=== PATIENT | female | born 1960 | race Caucasian/White ===

== ENCOUNTER 2020-11-23 06:05 | Observation (INO) ==
[2020-11-23] MEDS ORDERED: Ethanol\\Acetic Acid\\Na Ace\\Ben 1,000 ML IRRIG.SOLN IR ONE (06:37)
[2020-11-23] MEDS ORDERED: Vancomycin 1,000 MG VIAL ONE ×2 (06:37→18:12)
[2020-11-23] MEDS ORDERED: CeFAZolin Syr 2,000MG/20 ML 2,000 MG/20 ML SYRINGE IVPB ONE (06:47)
[2020-11-23] MEDS ORDERED: Ringers Solution, Lactated 1,000 ML IVC SCH ×2 (07:00→10:07)
[2020-11-23] MEDS ORDERED: Scopolamine Patch 1.5 MG PATCH.TD72 TD ONE (07:07)
[2020-11-23] MEDS ORDERED: *HR* HYDROmorphone PF 0.5 MG/0.5 ML SYRINGE IVP PRN (07:07)
[2020-11-23] MEDS ORDERED: *HR* OxyCODONE Immed Rel 5 MG TABLET PO PRN (07:07)
[2020-11-23] MEDS ORDERED: Gabapentin 300 MG CAPSULE PO ONE (07:07)
[2020-11-23] MEDS ORDERED: *HR* OxyCODONE ER (12 HR) 10 MG TABLET PO ONE (07:07)
[2020-11-23] MEDS ORDERED: Ondansetron 4 MG/2 ML VIAL IVP PRN ×2 (07:07→10:07)
[2020-11-23] MEDS ORDERED: Dexamethasone 4 MG/ML VIAL ONE (07:14)
[2020-11-23] MEDS ORDERED: *HR* Midazolam HCl 2 MG/2 ML VIAL ONE (07:14)
[2020-11-23] MEDS ORDERED: Lidocaine -MPF 2% 2 ML VIAL ONE (07:14)
[2020-11-23] MEDS ORDERED: *HR* Propofol 200 MG/20 ML VIAL IVP ONE (07:14)
[2020-11-23] MEDS ORDERED: *HR* FentaNYL (PF) 100 MCG/2 ML VIAL ONE (07:14)
[2020-11-23] MEDS ORDERED: *HR* Rocuronium Bromide 50 MG/5 ML VIAL ONE (07:15)
[2020-11-23] MEDS ORDERED: Lidocaine HCL 4 ML Topical Solution (Laryng-O-Jet Kit Sterile Pak) TP ONE (07:15)
[2020-11-23] MEDS ORDERED: *HR* Succinylcholine 200 MG/10 ML VIAL IVP ONE (07:15)
[2020-11-23] MEDS ORDERED: *HR* HYDROMORPHONE 2 MG/ML VIAL ONE (07:19)
[2020-11-23] MEDS ORDERED: Povidone-Iodine 45 ML, Sodium Chloride IRRigation 1,000 ML IR ONE (07:45)
[2020-11-23 09:57] LABS: Hematocrit 44.7 % (35.3-44.9); Hemoglobin 14.4 g/dL (11.5-15.4)
[2020-11-23] MEDS ORDERED: *HR* Dextrose 50 % in Water (Vial) 50 ML VIAL IVP PRN (10:07)
[2020-11-23] MEDS ORDERED: Sennosides 8.6 MG TABLET PO PRN (10:07)
[2020-11-23] MEDS ORDERED: D5% in Water 1,000 ML IVC PRN (10:07)
[2020-11-23] MEDS ORDERED: Naloxone 0.4 MG/ML INJ IVP PRN (10:07)
[2020-11-23] MEDS ORDERED: *HR* Promethazine 25 MG/ML VIAL IM PRN (10:07)
[2020-11-23] MEDS ORDERED: MOM Conc 10 ML UD.LIQ PO PRN (10:07)
[2020-11-23] MEDS ORDERED: Dextrose Gel 15 GM/37.5 ML TUBE PO PRN ×2 (10:07)
[2020-11-23] MEDS: Furosemide 40 MG TABLET PO SCH ×2 (10:51→17:00)
[2020-11-23] MEDS: Insulin LISPRO 300 UNITS/3 ML VIAL SUBQ SCH ×4 (12:31→21:25)
[2020-11-23] MEDS: Loratadine 10 MG TABLET PO SCH (12:31)
[2020-11-23] MEDS: Ascorbic Acid 500 MG TABLET PO SCH ×2 (12:31→17:00)
[2020-11-23] MEDS: Multivit/Ca/Min/Fe/FA 1 TAB TABLET PO SCH (12:31)
[2020-11-23] MEDS: allopurinoL 100 MG TABLET PO SCH (12:31)
[2020-11-23] MEDS ORDERED: Gabapentin 400 MG CAPSULE PO SCH ×2 (15:00→21:00)
[2020-11-23] MEDS: *HR* OxyCODONE Immed Rel 5 MG TABLET PO PRN ×2 (15:43→21:28)
[2020-11-23] MEDS ORDERED: *HR* Rivaroxaban 10 MG TABLET PO SCH (17:00)
[2020-11-23] MEDS: CeFAZolin 2 GM/120 ML BAG IVPB SCH (17:00)
[2020-11-23] MEDS: Gabapentin 400 MG CAPSULE PO SCH (21:24)
[2020-11-24 00:55] LABS: Basophils % 0.1 %; Immature Granulocytes % 0.4 % (0-4); Lymphocytes # 1.4 K/mcL (0.6-4.6); Mean Corpuscular HGB Conc 32.5 g/dL (31.6-35.5); Mean Corpuscular Hemoglobin 30.7 pg (28.0-33.3); Mean Corpuscular Volume 94.5 fL (83.0-100.0); Mean Platelet Volume 9.6 fL (9.4-12.4); Monocytes # 0.9 K/mcL (0.0-1.3); Monocytes % 7.8 %; Neutrophils # 8.8 K/mcL (1.6-8.9); Platelet Count 210 K/mcL (140-400); Red Blood Count 3.81 M/mcL (3.82-4.97); Red Cell Distribution Width 14.8 % (11.5-14.5); Segmented Neutrophils % 78.7 %; White Blood Count 11.1 K/mcL (4.3-11.1)
[2020-11-24 00:59] LABS: Hemoglobin 11.7 g/dL (11.5-15.4)
[2020-11-24] MEDS: CeFAZolin 2 GM/120 ML BAG IVPB SCH (01:08)
[2020-11-24 01:11] LABS: BUN/Creatinine Ratio 25 (6-26); Blood Urea Nitrogen 21 mg/dL (8-23); Calcium 8.7 mg/dL (8.6-10.3); Carbon Dioxide 22 mEq/L (23-29); Chloride 103 mEq/L (98-107); Glucose 148 mg/dL (70-105); Osmolality,Calculated 284 (280-300); Potassium 4.4 mEq/L (3.5-5.1); Sodium 134 mEq/L (136-145); eGFR For African Americans > 60 (> 60); eGFR For Non-African Americans > 60 (> 60)
[2020-11-24] MEDS: HYDROcodone BIT/Homatropine 5 MG TABLET PO PRN ×3 (01:13→13:23)
[2020-11-24] MEDS: *HR* OxyCODONE Immed Rel 5 MG TABLET PO PRN ×4 (05:01→20:11)
[2020-11-24] MEDS: Ascorbic Acid 500 MG TABLET PO SCH ×2 (08:01→16:16)
[2020-11-24] MEDS: Furosemide 40 MG TABLET PO SCH ×2 (08:02→16:17)
[2020-11-24] MEDS: allopurinoL 100 MG TABLET PO SCH (08:02)
[2020-11-24] MEDS: Loratadine 10 MG TABLET PO SCH (08:02)
[2020-11-24] MEDS: Gabapentin 400 MG CAPSULE PO SCH ×3 (08:02→20:10)
[2020-11-24] MEDS: Multivit/Ca/Min/Fe/FA 1 TAB TABLET PO SCH (08:02)
[2020-11-24] MEDS: Insulin LISPRO 300 UNITS/3 ML VIAL SUBQ SCH ×4 (08:03→20:12)
[2020-11-24] MEDS: *HR* Rivaroxaban 10 MG TABLET PO SCH (08:08)
[2020-11-25 02:33] LABS: Basophils # 0.1 K/mcL (0.0-0.2); Basophils % 0.6 %; Eosinophils # 0.2 K/mcL (0.0-0.6); Eosinophils % 1.7 %; Hematocrit 32.6 % (35.3-44.9); Hemoglobin 10.6 g/dL (11.5-15.4); Immature Granulocytes % 0.3 % (0-4); Lymphocytes # 2.5 K/mcL (0.6-4.6); Mean Corpuscular HGB Conc 32.5 g/dL (31.6-35.5); Mean Corpuscular Hemoglobin 31.3 pg (28.0-33.3); Mean Corpuscular Volume 96.2 fL (83.0-100.0); Mean Platelet Volume 10.1 fL (9.4-12.4); Monocytes % 10.6 %; Neutrophils # 5.4 K/mcL (1.6-8.9); Platelet Count 190 K/mcL (140-400); Red Blood Count 3.39 M/mcL (3.82-4.97); Red Cell Distribution Width 15.1 % (11.5-14.5); Segmented Neutrophils % 59.8 %; White Blood Count 9.1 K/mcL (4.3-11.1)
[2020-11-25 02:54] LABS: BUN/Creatinine Ratio 35 (6-26); Blood Urea Nitrogen 29 mg/dL (8-23); Calcium 8.5 mg/dL (8.6-10.3); Carbon Dioxide 23 mEq/L (23-29); Chloride 103 mEq/L (98-107); Glucose 121 mg/dL (70-105); Osmolality,Calculated 287 (280-300); Potassium 3.9 mEq/L (3.5-5.1); Sodium 135 mEq/L (136-145); eGFR For African Americans > 60 (> 60); eGFR For Non-African Americans > 60 (> 60)
[2020-11-25] MEDS: *HR* OxyCODONE Immed Rel 5 MG TABLET PO PRN (03:09)
[2020-11-25] MEDS: *HR* Rivaroxaban 10 MG TABLET PO SCH (09:10)
[2020-11-25] MEDS: Ascorbic Acid 500 MG TABLET PO SCH (09:10)
[2020-11-25] MEDS: Loratadine 10 MG TABLET PO SCH (09:11)
[2020-11-25] MEDS: Multivit/Ca/Min/Fe/FA 1 TAB TABLET PO SCH (09:11)
[2020-11-25] MEDS: allopurinoL 100 MG TABLET PO SCH (09:11)
[2020-11-25] MEDS: Insulin LISPRO 300 UNITS/3 ML VIAL SUBQ SCH ×2 (09:11→12:18)
[2020-11-25] MEDS: Furosemide 40 MG TABLET PO SCH (09:11)
[2020-11-25] MEDS: Gabapentin 400 MG CAPSULE PO SCH (09:12)
[2020-11-25 11:52] LABS: Adenovirus Not Detected (Not Detect); Bordetella Pertussis Not Detected (Not Detect); Chlamydophila pneumoniae Not Detected (Not Detect); Coronavirus 229E Not Detected (Not Detect); Coronavirus HKU1 Not Detected (Not Detect); Coronavirus NL63 Not Detected (Not Detect); Coronavirus OC43 Not Detected (Not Detect); Human Metapneumovirus Not Detected (Not Detect); Human Rhinovirus/Enterovirus DETECTED (Not Detect); Influenza A Subtype 2009 H1 Not Detected (Not Detect); Influenza B Not Detected (Not Detect); Mycoplasma pneumoniae Not Detected (Not Detect); Parainfluenza Virus 1 Not Detected (Not Detect); Parainfluenza Virus 2 Not Detected (Not Detect); Parainfluenza Virus 3 Not Detected (Not Detect); Parainfluenza Virus 4 Not Detected (Not Detect); Respiratory Syncytial Virus Not Detected (Not Detect); SARS-CoV-2 Not Detected (Not Detect)
[2020-11-25 14:46] VITALS: BP 107/71
[2020-11-25] MEDS: HYDROcodone BIT/Homatropine 5 MG TABLET PO PRN (14:50)
== END 2020-11-25 16:19 ==
LOC: 3NENU 06:05 → SAMDAY 06:05 → 3NENU 10:07
PROVIDERS: ADMIT Orthopaedic Surgery; ATTEND Orthopaedic Surgery